=== PATIENT | female | born 1980 | race Caucasian/White ===

== ENCOUNTER 2019-06-03 16:23 | Emergency (ER) | payer SELFPAY ==
[~2019-06-03] VITALS: Ht 160 cm; Wt 49.9 kg
--- NOTE | 2019-06-03 16:46 | NUR ---
C/O LOWER ABDOMINAL PAIN X 4 DAYS, VAGINAL DISCHARGE "THE STRING OF MY IUD IS MISSING". PAIN IS CRAMPING, SOMETIMES SHARP, 6/10. HAVING SOME SPOTTING. DENIES . IUD IN PLACE FOR 4 YEARS. MADE COMFORTABLE AND ON MONITOR. READY FOR EVAL.
[2019-06-03] MEDS ORDERED: CEFTRIAXONE 1GM BAG (ER ONLY) 1 GM/50 ML PIGGYBACK IV ONE (17:00)
[2019-06-03] MEDS ORDERED: KETOROLAC TROMETHAMINE INJ 30 MG/ML VIAL IV ONE (17:00)
[2019-06-03] MEDS ORDERED: IV NS 0.9% 1,000 ML BAG IV ONE (17:00)
[2019-06-03] MEDS ORDERED: AZITHROMYCIN 250 MG TABLET PO ONE (17:00)
[2019-06-03] MEDS ORDERED: MAG HYDROX/AL HYDROX/SIMETH 30 ML UDC PO ONE (17:00)
[2019-06-03] MEDS ORDERED: ONDANSETRON HCL/PF 4 MG/2 ML VIAL IVP ONE (17:00)
[2019-06-03] MEDS ORDERED: ONDANSETRON HCL/PF 4 MG/2 ML VIAL ONE (17:07)
[2019-06-03] MEDS ORDERED: CEFTRIAXONE 1GM BAG (ER ONLY) 50 ML IV ONE (17:07)
[2019-06-03] MEDS ORDERED: KETOROLAC TROMETHAMINE 15 MG/ML VIAL ONE (17:07)
[2019-06-03] MEDS ORDERED: MAG HYDROX/AL HYDROX/SIMETH 30 ML UDC ONE (17:07)
[2019-06-03] MEDS ORDERED: AZITHROMYCIN 250 MG TABLET ONE (17:08)
[2019-06-03 17:11] LABS: APPEARANCE,URINE Clear (CLEAR); BILIRUBIN,URINE Negative (NEGATIVE); BLOOD, URINE Trace-lysed Ery/uL (NEGATIVE); COLOR,URINE Yellow (YELLOW); KETONES,URINE Negative (NEGATIVE); LEUKOCYTE ESTERASE ,URINE Negative (NEGATIVE); NITRITE, URINE Negative (NEGATIVE); PROTEIN,URINE Negative (NEGATIVE); UGLUCOSE Negative (NEGATIVE); UROBILINOGEN,URINE 0.2 EU/dL (0.2)
[2019-06-03 17:19] LABS: BASOPHILS # (AUTO) 0.1 /CMM (0.0-0.2); BASOPHILS % (AUTO) 0.7 % (0.0-2.0); EOSINOPHILS % (AUTO) 0.2 % (0.0-6.0); HEMATOCRIT 42 % (33-45); HEMOGLOBIN 14.3 g/dL (11.5-14.8); LYMPHOCYTES # (AUTO) 1.7 /CMM (0.8-4.8); LYMPHOCYTES % (AUTO) 18.2 % (20.0-44.0); MEAN CORPUSCULAR HGB CONC 34 g/dl (31.0-36.0); MEAN CORPUSCULAR VOLUME 95 fL (82-100); MONOCYTES # (AUTO) 0.5 /CMM (0.1-1.30); MONOCYTES % (AUTO) 5.4 % (2.0-12.0); NEUTROPHILS % (AUTO) 75.5 % (43.0-81.0); PLATELET COUNT (AUTO) 250 /CMM (150-450); RED BLOOD CELL COUNT(AUTO) 4.45 MIL/uL (4.0-5.2); WHITE BLOOD COUNT (AUTO) 9.3 K/uL (4.3-11.0)
[2019-06-03 17:25] LABS: BACTERIA,URINE Rare /HPF (None Seen); SQUAMOUS EPITHELIAL CELL,UR Few /HPF (None Seen); WBC,URINE NONE SEEN /HPF (0-3)
--- NOTE | 2019-06-03 17:25 | NUR ---
DIAGNOSTIC TECHNOLOGIST AT BEDSIDE
[2019-06-03 17:38] LABS: ALBUMIN 3.8 g/dL (3.4-5.0); BILIRUBIN,TOTAL 0.3 mg/dL (0.2-1.0); CALCIUM, SERUM 8.7 mg/dL (8.5-10.1); CREATININE 0.8 mg/dL (0.6-1.3); POTASSIUM 4.2 mmol/L (3.5-5.1); TOTAL PROTEIN, SERUM 7.6 g/dL (6.4-8.2)
--- NOTE | 2019-06-03 18:35 | NUR ---
IV removed. Catheter intact and site benign. Pressure and 4x4 applied to site. No bleeding noted.Patient discharged to home in stable condition. Written and verbal after care instructions given. Patient verbalizes understanding of instruction.
[2019-06-03 18:36] VITALS: BP 121/78
== END 2019-06-03 18:36 | disposition home or self-care (01) ==
LOC: ER 16:26
DX: N72 Inflammatory disease of cervix uteri (principal); N92.6 Irregular menstruation, unspecified; Z88.2 Allergy status to sulfonamides; Z60.2 Problems related to living alone
CPT/HCPCS: 36415; 76856; 80048; 80076; 81001; 83690; 84703; 85025; 87077; 87086; 96374; 96375; 99284; A6403; J0696; J1885; J2405; J7030; 81000-TC